=== PATIENT | female | born 1980 | race African-American/Black ===

== ENCOUNTER 2016-12-25 14:56 | Observation (INO) | payer MEDICAID ==
[~2016-12-25] VITALS: Ht 170.2 cm; Wt 136.1 kg
[2016-12-25] MEDS ORDERED: PNV1TABL76 MT (15:27)
== END 2016-12-25 17:50 | disposition home or self-care (01) ==
LOC: L&D 14:56
PROVIDERS: ADMIT Specialist; ATTEND Specialist
DX: O36.4XX0 Maternal care for intrauterine death, not applicable or unspecified (principal); Z3A.17 17 weeks gestation of pregnancy
CPT/HCPCS: 76805; G0378; 99281